=== PATIENT | female | born 1945 | race Caucasian/White ===

== ENCOUNTER 2019-05-22 07:00 | Day surgery (SDC) | payer MEDICARE, BC ==
[2019-05-21 14:23] LABS: ALBUMIN 3.7 G/DL (3.4-5.0); ANION GAP 6 (8-16); BLOOD UREA NITROGEN 28 MG/DL (7-18); BUN/CREATININE RATIO 25.9 (6.6-38.0); CALCIUM 8.9 MG/DL (8.5-10.1); CHLORIDE 103 MMOL/L (99-107); CREATININE 1.08 MG/DL (0.40-0.90); GLUCOSE 113 MG/DL (70-104); POTASSIUM 4.3 MMOL/L (3.5-5.1); SODIUM 138 MMOL/L (135-145); TOTAL CARBON DIOXIDE 29.1 MMOL/L (24-32); eGFR 50 ML/MIN
[2019-05-21 15:30] LABS: BASOPHILS # (AUTO) 0.1 X10'3 (0-0.2); BASOPHILS % (AUTO) 0.8 % (0-1); EOSINOPHILS # (AUTO) 0.4 X10'3 (0-0.9); EOSINOPHILS % (AUTO) 5.3 % (0-6); HEMATOCRIT 34.9 % (35.0-45.0); HEMOGLOBIN 11.6 g/dl (12.0-16.0); LYMPHOCYTES % (AUTO) 12.3 % (21-51); MEAN CORPUSCULAR HEMOGLOBIN 30.4 PG (27.0-31.0); MEAN CORPUSCULAR HGB CONC 33.3 g/dL (33.0-36.5); MEAN CORPUSCULAR VOLUME 91.2 FL (78-98); MEAN PLATELET VOLUME 7.3 FL (7.4-10.4); MONOCYTES # (AUTO) 0.7 X10'3 (0-0.9); MONOCYTES % (AUTO) 8.4 % (2-12); NEUTROPHILS # (AUTO) 5.7 X10'3 (1.8-7.7); NEUTROPHILS % (AUTO) 73.2 % (42-75); PLATELET COUNT 284 X10'3 (140-440); RED BLOOD COUNT 3.83 X10'6 (4.20-5.60); WHITE BLOOD COUNT 7.8 X10'3 (4.5-11.0)
[2019-05-22] VITALS (18 sets, daily range): BP systolic 96–140; BP diastolic 12–84
[~2019-05-22] VITALS: Ht 152.4 cm; Wt 51.5 kg
[2019-05-22] MEDS ORDERED: amiodarone in dextrose, iso-osm 150mg/100ml bag IV ONE (07:25)
[2019-05-22] MEDS ORDERED: MIDAZolam 1mg/ml 10ml vial IV ONE (07:25)
[2019-05-22] MEDS ORDERED: normal saline 1000ml 1,000 ML IV SCH (07:25)
[2019-05-22] MEDS ORDERED: diphenhydrAMINE 25mg capsule PO ONE (07:25)
[2019-05-22] MEDS ORDERED: LORazepam 0.5 MG tablet PO ONE (07:25)
[2019-05-22] MEDS ORDERED: morphine 10mg/ml inj. IV ONE (07:25)
[2019-05-22] MEDS ORDERED: APIX5TAB3 PO (08:29)
[2019-05-22] MEDS ORDERED: CARV6.253 PO (08:29)
[2019-05-22] MEDS ORDERED: LUTE1CAP6 PO (08:29)
[2019-05-22] MEDS ORDERED: ASPI-920 PO (08:29)
[2019-05-22] MEDS ORDERED: LORA-269 PO (08:29)
[2019-05-22] MEDS ORDERED: VIT1CAPS46 PO (08:29)
[2019-05-22] MEDS ORDERED: CHOL500044 PO (08:29)
[2019-05-22] MEDS ORDERED: ZINC50TA67 PO (08:29)
[2019-05-22] MEDS ORDERED: AMIO200T4 PO (08:29)
[2019-05-22] MEDS ORDERED: ATOR40TA71 PO (08:29)
[2019-05-22] MEDS ORDERED: FERR134T2 PO (08:29)
== END 2019-05-22 11:30 | disposition home or self-care (01) ==
LOC: SSTAY O 07:00
PROVIDERS: ATTEND Internal Medicine Cardiovascular Disease
DX: I48.19 Other persistent atrial fibrillation (principal); I10 Essential (primary) hypertension; E78.5 Hyperlipidemia, unspecified; Z86.73 Personal history of transient ischemic attack (TIA), and cerebral infarction without residual deficits; Z79.899 Other long term (current) drug therapy; Z79.01 Long term (current) use of anticoagulants
CPT/HCPCS: 36415; 80048; 85025; 85610; 92960; J0282; J2250; J2270; J7030; Q0163

== ENCOUNTER 2019-06-06 07:11 | Day surgery (SDC) | payer MEDICARE, BC ==
[2019-06-05 13:53] LABS: BASOPHILS # (AUTO) 0.1 X10'3 (0-0.2); BASOPHILS % (AUTO) 1.2 % (0-1); EOSINOPHILS # (AUTO) 0.1 X10'3 (0-0.9); EOSINOPHILS % (AUTO) 2.2 % (0-6); HEMATOCRIT 37.7 % (35.0-45.0); HEMOGLOBIN 12.3 g/dl (12.0-16.0); LYMPHOCYTES # (AUTO) 0.9 X10'3 (1.1-4.8); LYMPHOCYTES % (AUTO) 15.2 % (21-51); MEAN CORPUSCULAR HEMOGLOBIN 29.3 PG (27.0-31.0); MEAN CORPUSCULAR HGB CONC 32.7 g/dL (33.0-36.5); MEAN CORPUSCULAR VOLUME 89.6 FL (78-98); MEAN PLATELET VOLUME 7.4 FL (7.4-10.4); MONOCYTES # (AUTO) 0.5 X10'3 (0-0.9); MONOCYTES % (AUTO) 8.7 % (2-12); NEUTROPHILS # (AUTO) 4.3 X10'3 (1.8-7.7); NEUTROPHILS % (AUTO) 72.7 % (42-75); PLATELET COUNT 222 X10'3 (140-440); RED BLOOD COUNT 4.21 X10'6 (4.20-5.60); RED CELL DISTRIBUTION WIDTH 15.5 % (11.5-14.5)
[2019-06-05 14:03] LABS: ALBUMIN 3.8 G/DL (3.4-5.0); ANION GAP 7 (8-16); BLOOD UREA NITROGEN 25 MG/DL (7-18); BUN/CREATININE RATIO 21.7 (6.6-38.0); CALCIUM 8.8 MG/DL (8.5-10.1); CHLORIDE 105 MMOL/L (99-107); CREATININE 1.15 MG/DL (0.40-0.90); GLUCOSE 88 MG/DL (70-104); POTASSIUM 4.4 MMOL/L (3.5-5.1); SODIUM 140 MMOL/L (135-145); TOTAL CARBON DIOXIDE 28.3 MMOL/L (24-32); eGFR 46 ML/MIN
[~2019-06-06] VITALS: Ht 152.4 cm; Wt 52.0 kg
[2019-06-06] VITALS (14 sets, daily range): BP systolic 95–156; BP diastolic 41–84
[~2019-06-06 07:11] MED LIST: AMIO200T4 PO; APIX5TAB3 PO; ASPI-920 PO; ATOR40TA71 PO; CARV6.253 PO; CHOL500044 PO; FERR134T2 PO; LORA-269 PO; LUTE1CAP6 PO; VIT1CAPS46 PO; ZINC50TA67 PO
[2019-06-06] MEDS ORDERED: diphenhydrAMINE 25mg capsule PO ONE (07:35)
[2019-06-06] MEDS ORDERED: normal saline 1000ml 1,000 ML IV SCH (07:35)
[2019-06-06] MEDS ORDERED: LORazepam 0.5 MG tablet PO ONE (07:35)
[2019-06-06] MEDS ORDERED: MIDAZolam 1mg/ml 10ml vial IV ONE (07:35)
[2019-06-06] MEDS ORDERED: morphine 10mg/ml inj. IV ONE (07:35)
[2019-06-06] MEDS ORDERED: atropine 0.1mg/ml 10ml syringe IV ONE (07:35)
[2019-06-06] MEDS ORDERED: amiodarone in dextrose, iso-osm 150mg/100ml bag IV ONE (07:35)
[2019-06-06] MEDS ORDERED: CARV12.529 PO (08:24)
[2019-06-06] MEDS ORDERED: CYAN500T63 PO (08:24)
[2019-06-06] MEDS ORDERED: LACT1CAP75 PO (08:49)
[2019-06-06] MEDS ORDERED: VIT1CAPS9 PO (08:49)
[2019-06-06] MEDS ORDERED: LACT1CAP57 PO (08:49)
== END 2019-06-06 10:45 | disposition home or self-care (01) ==
LOC: SSTAY O 07:11
PROVIDERS: ATTEND Internal Medicine Cardiovascular Disease
DX: I48.19 Other persistent atrial fibrillation (principal); I10 Essential (primary) hypertension; E78.5 Hyperlipidemia, unspecified; Z95.9 Presence of cardiac and vascular implant and graft, unspecified
CPT/HCPCS: 36415; 80048; 85025; 85610; 92960; 93005; J2250; J2270; J7030

== ENCOUNTER 2024-05-10 07:07 | Day surgery (SDC) | payer MEDICARE, BC ==
[2024-05-09 12:14] LABS: BASOPHILS # (AUTO) 0.1 X10'3 (0-0.2); BASOPHILS % (AUTO) 1.2 % (0-1); EOSINOPHILS # (AUTO) 0.1 X10'3 (0-0.9); HEMATOCRIT 38.1 % (35.0-45.0); HEMOGLOBIN 12.7 g/dl (12.0-16.0); LYMPHOCYTES # (AUTO) 0.8 X10'3 (1.1-4.8); LYMPHOCYTES % (AUTO) 16.4 % (21-51); MEAN CORPUSCULAR HEMOGLOBIN 30.8 PG (27.0-31.0); MEAN CORPUSCULAR HGB CONC 33.4 g/dL (33.0-36.5); MEAN CORPUSCULAR VOLUME 92.1 FL (78-98); MEAN PLATELET VOLUME 7.7 FL (7.4-10.4); MONOCYTES # (AUTO) 0.4 X10'3 (0-0.9); MONOCYTES % (AUTO) 9.5 % (2-12); NEUTROPHILS # (AUTO) 3.2 X10'3 (1.8-7.7); NEUTROPHILS % (AUTO) 69.9 % (42-75); PLATELET COUNT 164 X10'3 (140-440); RED BLOOD COUNT 4.13 X10'6 (4.20-5.60); RED CELL DISTRIBUTION WIDTH 14.2 % (11.5-14.5); WHITE BLOOD COUNT 4.6 X10'3 (4.5-11.0)
[2024-05-09 12:20] LABS: INR 1.2 INR; PROTHROMBIN TIME 12.5 SECONDS (9.0-12.0)
[2024-05-09 12:22] LABS: ALBUMIN 3.6 G/DL (3.4-5.0); ANION GAP 8 (8-16); BLOOD UREA NITROGEN 8 MG/DL (7-18); BUN/CREATININE RATIO 8.2 (10.0-20.0); CALCIUM 7.8 MG/DL (8.5-10.1); CHLORIDE 100 MMOL/L (99-107); CREATININE 0.97 MG/DL (0.40-0.90); GLUCOSE 87 MG/DL (70-104); POTASSIUM 3.9 MMOL/L (3.5-5.1); SODIUM 134 MMOL/L (135-145); eGFR 56 ML/MIN
[2024-05-10] VITALS (15 sets, daily range): BP systolic 102–152; BP diastolic 52–82; PULSE 50–96; RESP 13–20; TEMP 97.8; O2SAT 94–98
[~2024-05-10] VITALS: Ht 152.4 cm; Wt 52.0 kg
[~2024-05-10 07:07] MED LIST changes: -AMIO200T4 PO; +AMIO200T67 PO; +CARV12.529 PO; -CARV6.253 PO; +CYAN500T71 PO; +LACT1CAP57 PO; +LACT1CAP75 PO; +VIT1CAPS9 PO
[2024-05-10] MEDS ORDERED: LORazepam 0.5 MG tablet PO ONE (07:20)
[2024-05-10] MEDS ORDERED: AMLO5TAB PO (07:44)
[2024-05-10] MEDS ORDERED: ATOR20TA66 PO (07:44)
[2024-05-10] MEDS: MIDAZolam 1mg/ml 10ml vial IV ONE (08:10)
[2024-05-10] MEDS: diphenhydrAMINE 25mg capsule PO ONE (08:10)
[2024-05-10] MEDS: amiodarone 150mg/dext, iso-os 100 ML IV ONE (08:10)
[2024-05-10] MEDS: atropine 0.1mg/ml 10ml syringe IV ONE (08:10)
[2024-05-10] MEDS: normal saline 1000ml 1,000 ML IV SCH (08:10)
[2024-05-10] MEDS: morphine 10mg/ml inj. IV ONE (08:10)
== END 2024-05-10 11:55 | disposition home or self-care (01) ==
LOC: SSTAY O 07:07
PROVIDERS: ATTEND Internal Medicine Cardiovascular Disease
DX: I48.19 Other persistent atrial fibrillation (principal); I48.92 Unspecified atrial flutter; I10 Essential (primary) hypertension; E78.5 Hyperlipidemia, unspecified; I25.10 Atherosclerotic heart disease of native coronary artery without angina pectoris; I71.20 Thoracic aortic aneurysm, without rupture, unspecified; Z95.5 Presence of coronary angioplasty implant and graft; Z79.01 Long term (current) use of anticoagulants; Z87.891 Personal history of nicotine dependence
CPT/HCPCS: 36415; 80048; 85025; 85610; 92960; 93005; J0282; J0461; J2250; J2270; J7030; Q0163; J2274